=== PATIENT | male | born 1990 | race Caucasian/White ===

== ENCOUNTER 2017-11-12 13:09 | Day surgery (SDC) | payer OTHER ==
[~2017-11-12 13:09] MED LIST: CLINDAMYCIN 600 MG/D5W (PMX) 50 ML IVPB; SOD CHLORIDE 0.9% 1,000 ML IV
[2017-11-12] MEDS ORDERED: FENTAnyl 50 MCG/ML VIAL (15:52)
[2017-11-12] MEDS ORDERED: BUPIVACAINE 0.25% (MPF) 30 ML INJ (16:10)
[2017-11-12] MEDS ORDERED: POLYMYXIN/BACITRACIN 1L IRRIG (16:11)
[2017-11-12] MEDS ORDERED: CEFAZOLIN 1 GM INJ (16:24)
[2017-11-12] MEDS ORDERED: ROCURONIUM 50 MG INJ (16:24)
[2017-11-12] MEDS ORDERED: SUCCINYLCHOLINE CHLORIDE 100 MG/5 ML SYG IV (16:24)
[2017-11-12] MEDS ORDERED: SUGAMMADEX SODIUM 200 MG/2 ML VIAL IV (16:24)
[2017-11-12] MEDS ORDERED: PROPOFOL 40 ML (16:24)
[2017-11-12] MEDS: POLYMYXIN/BACITRACIN 1L IRRIG IRR (16:38)
[2017-11-12] MEDS: BUPIVACAINE 0.25% (MPF) 30 ML INJ INJ (16:39)
[2017-11-12] MEDS ORDERED: ROPIVACAINE 0.5 % 30 ML VIAL (16:53)
[2017-11-12] MEDS ORDERED: ONDANSETRON 4 MG INJ (17:19)
[2017-11-12] MEDS ORDERED: MEPERIDINE 25 MG INJ (17:19)
[2017-11-12] MEDS ORDERED: HYDROmorphONE (0.2 MG/ML) 10ML SYG IV (17:19)
[2017-11-12] MEDS: ONDANSETRON 4 MG INJ IV ×2 (17:25→19:00)
[2017-11-12] MEDS: MEPERIDINE 25 MG INJ IV (17:25)
[2017-11-12] MEDS: HYDROmorphONE (0.2 MG/ML) 10ML SYG IV ×4 (17:25→18:10)
[2017-11-12] MEDS ORDERED: FENTAnyl 50 MCG/ML VIAL IV (17:30)
[2017-11-12] MEDS: hydrALAzine 20 MG INJ IV (17:34)
[2017-11-12] MEDS: HYDROCODONE/APAP (5/325) TAB PO (17:46)
== END 2017-11-12 19:12 | disposition home or self-care (01) ==
LOC: SDS 13:09
DX: K43.6 Other and unspecified ventral hernia with obstruction, without gangrene (principal); I10 Essential (primary) hypertension; E66.01 Morbid (severe) obesity due to excess calories; Z68.41 Body mass index [BMI] 40.0-44.9, adult; G47.30 Sleep apnea, unspecified; Z87.891 Personal history of nicotine dependence; Z88.1 Allergy status to other antibiotic agents; Z88.8 Allergy status to other drugs, medicaments and biological substances
CPT/HCPCS: 49653